=== PATIENT | female | born 1995 | race Two or more races ===

== ENCOUNTER 2017-07-01 04:37 | Emergency (ER) | payer OTHER ==
[~2017-07-01] VITALS: Ht 157.5 cm; Wt 76.2 kg
[2017-07-01] MEDS ORDERED: ALBUTEROL SULFATE 2.5 MG/3 ML NPPB ONE (05:00)
[2017-07-01 05:01] VITALS: BP 128/76
[2017-07-01] MEDS ORDERED: ALBUTEROL SULFATE 2.5 MG/3 ML ONE (05:06)
== END 2017-07-01 05:56 | disposition home or self-care (01) ==
LOC: ED 05:40
DX: J45.31 Mild persistent asthma with (acute) exacerbation (principal); J00 Acute nasopharyngitis [common cold]; Z87.891 Personal history of nicotine dependence
CPT/HCPCS: 71020; 94640; 99284; J7512; J7613

== ENCOUNTER 2017-11-08 02:11 | Emergency (ER) | payer OTHER ==
[~2017-11-08] VITALS: Ht 157.5 cm; Wt 78.7 kg
[2017-11-08] MEDS ORDERED: MONT4GRA PO (02:26)
[2017-11-08] MEDS ORDERED: ALBU18HF INH (02:26)
[2017-11-08] MEDS ORDERED: NORG1TAB30 PO (02:26)
[2017-11-08] MEDS ORDERED: ALBUTEROL SULFATE 2.5 MG/3 ML ONE (03:14)
[2017-11-08] MEDS ORDERED: ALBUTEROL SULFATE 2.5 MG/3 ML NPPB ONE (03:30)
[2017-11-08 04:09] VITALS: BP 146/73
== END 2017-11-08 04:12 | disposition home or self-care (01) ==
LOC: ED 04:06
DX: J45.41 Moderate persistent asthma with (acute) exacerbation (principal)
CPT/HCPCS: 94640; 99283; J7512; J7613

== ENCOUNTER 2018-03-19 11:11 | Emergency (ER) | payer OTHER ==
[~2018-03-19] VITALS: Ht 157.5 cm; Wt 68.6 kg
[~2018-03-19 11:11] MED LIST: ALBU18HF INH; MONT4GRA PO; NORG1TAB30 PO
[2018-03-19 11:44] VITALS: BP 138/85
== END 2018-03-19 12:05 | disposition home or self-care (01) ==
LOC: ED 11:59
DX: L03.113 Cellulitis of right upper limb (principal); S50.361A Insect bite (nonvenomous) of right elbow, initial encounter; J45.909 Unspecified asthma, uncomplicated; F17.200 Nicotine dependence, unspecified, uncomplicated; W57.XXXA Bitten or stung by nonvenomous insect and other nonvenomous arthropods, initial encounter; Y93.89 Activity, other specified; Y99.8 Other external cause status; Y92.89 Other specified places as the place of occurrence of the external cause
CPT/HCPCS: 99283